=== PATIENT | male | born 1970 | race Caucasian/White ===

== ENCOUNTER 2025-06-03 11:18 | Inpatient (IN) | payer OTHER ==
[~2025-06-03] VITALS: Ht 175.3 cm; Wt 72.8 kg
[2025-06-03] MEDS ORDERED: ONDANSETRON 4 MG/2 ML VIAL ONE (12:16)
[2025-06-03] MEDS ORDERED: HYDROMORPHONE 1 MG/1 ML DISP.SYRIN ONE (12:16)
[2025-06-03 12:17] LABS: PLATELET COUNT (AUTO) 270 K/uL (152-348); RED BLOOD CELL COUNT(AUTO) 4.78 MIL/uL (4.06-5.63); RED CELL DISTRIBUTION WIDTH 14.0 % (12.1-16.2); WHITE BLOOD COUNT (AUTO) 7.7 K/uL (3.6-10.2)
[2025-06-03 12:22] LABS: CREATININE 1.1 mg/dL (0.6-1.3); SODIUM SERUM 141.0 mmol/L (136-145); UREA NITROGEN, BLOOD 18.0 mg/dL (7-18)
[2025-06-03 12:27] LABS: ASPARTATE AMINOTRANSFERASE 26.0 U/L (15-37); TOTAL PROTEIN, SERUM 6.9 g/dL (6.4-8.2)
[2025-06-03] MEDS: ONDANSETRON 4 MG/2 ML VIAL IV ONE (12:46)
[2025-06-03] MEDS: HYDROMORPHONE 1 MG/1 ML DISP.SYRIN IV ONE (12:48)
[2025-06-03] MEDS ORDERED: KETOROLAC TROMETHAMINE 30 MG INJ ONE (12:59)
[2025-06-03] MEDS: KETOROLAC TROMETHAMINE 30 MG INJ IM ONE (13:01)
[2025-06-03] MEDS: KETOROLAC TROMETHAMINE 30 MG INJ IVP ONE (13:07)
[2025-06-03] MEDS ORDERED: LORAZEPAM 1 MG TABLET ONE (16:16)
[2025-06-03] MEDS: LORAZEPAM 0.5 MG TABLET PO ONE (16:20)
[2025-06-03] MEDS ORDERED: HYDR-3980 PO (17:51)
[2025-06-03 22:00] VITALS: BP 133/90
[2025-06-03] MEDS ORDERED: MORPHINE SULFATE 4 MG/1 ML DISP.SYRIN IV PRN (22:30)
[2025-06-03] MEDS ORDERED: MAGNESIUM HYDROXIDE 30 ML LIQUID UDC PO PRN (22:30)
[2025-06-03] MEDS ORDERED: ONDANSETRON 4 MG/2 ML VIAL IV PRN (22:30)
[2025-06-03] MEDS: IV NS 1000 ML 1,000 ML IV SCH (22:30)
[2025-06-03] MEDS ORDERED: ACETAMINOPHEN 325 MG TABLET PO PRN (22:30)
[2025-06-03 23:30] VITALS: BP 130/86; TEMP 97.6; O2SAT 97
[2025-06-04] MEDS: IBUPROFEN 600 MG TABLET PO SCH (00:26)
[2025-06-04 04:00] VITALS: BP 133/72; TEMP 98.2; O2SAT 97
[2025-06-04] MEDS: PANTOPRAZOLE SODIUM 40 MG TABLET.DR PO SCH (06:21)
[2025-06-04 07:18] LABS: PLATELET COUNT (AUTO) 272 K/uL (152-348); RED BLOOD CELL COUNT(AUTO) 4.84 MIL/uL (4.06-5.63); RED CELL DISTRIBUTION WIDTH 13.7 % (12.1-16.2); WHITE BLOOD COUNT (AUTO) 6.5 K/uL (3.6-10.2)
[2025-06-04 07:29] LABS: CREATININE 1.0 mg/dL (0.6-1.3); SODIUM SERUM 141.0 mmol/L (136-145); UREA NITROGEN, BLOOD 17.0 mg/dL (7-18)
[2025-06-04 07:50] LABS: ERYTHROCYTE SEDIMENTATION RATE 55 MM/HR (0-15)
[2025-06-04] MEDS: HYDROCODONE/APAP 5-325MG TABLET PO PRN (08:39)
[2025-06-04] MEDS ORDERED: [UNRECOGNIZED DRUG - CODE] PO (10:28)
[2025-06-04] MEDS ORDERED: FAMO40TA7 PO (10:29)
[2025-06-04] MEDS ORDERED: DULO30CA52 PO (10:29)
[2025-06-04] MEDS ORDERED: PYRI-6 PO (10:29)
[2025-06-04 11:18] VITALS: BP 110/64; TEMP 97.6; O2SAT 98
[2025-06-04 15:25] VITALS: BP 110/58; TEMP 98.4; O2SAT 97
[2025-06-04 15:54] LABS: *BILIRUBIN,URIN NEGATIVE (NEGATIVE); *BLOOD, URINE NEGATIVE (NEGATIVE); *CLARITY,URINE CLEAR (CLEAR); *COLOR,URINE YELLOW (YELLOW); *KETONES,URINE NEGATIVE (NEGATIVE); *PROTEIN,URINE NEGATIVE (NEGATIVE); *UROBILINOGEN,URINE 0.2 E.U./dl (NORMAL); LEUKOCYTE ESTERASE ,URINE NEGATIVE (NEGATIVE); NITRITE, URINE NEGATIVE (NEGATIVE); UGLUCOSE NEGATIVE (NEGATIVE)
[2025-06-04 20:00] VITALS: BP 112/73; TEMP 98.8; O2SAT 99
[2025-06-05] MEDS: TRAZODONE 100 MG TABLET PO SCH (00:08)
[2025-06-05 05:00] VITALS: BP 100/59; TEMP 97.9; O2SAT 99
[2025-06-05] MEDS ORDERED: HYDR-3972 PO (11:05)
[2025-06-05 11:13] VITALS: BP 115/62; TEMP 98.1; O2SAT 98
== END 2025-06-05 13:00 | disposition home or self-care (01) | DRG 351 ==
LOC: ER 11:18 → MEDSURG3 22:31
DX: S89.92XA Unspecified injury of left lower leg, initial encounter (principal); E44.0 Moderate protein-calorie malnutrition; E88.09 Other disorders of plasma-protein metabolism, not elsewhere classified; M00.9 Pyogenic arthritis, unspecified; X58.XXXA Exposure to other specified factors, initial encounter; Y92.009 Unspecified place in unspecified non-institutional (private) residence as the place of occurrence of the external cause; M23.602 Other spontaneous disruption of unspecified ligament of left knee; M06.9 Rheumatoid arthritis, unspecified; M79.7 Fibromyalgia; K21.9 Gastro-esophageal reflux disease without esophagitis; E78.1 Pure hyperglyceridemia; Z88.6 Allergy status to analgesic agent; Z88.0 Allergy status to penicillin; M25.462 Effusion, left knee; R53.81 Other malaise
CPT/HCPCS: 36415; 73560; 73700; 83735; 84100; 85025; 85651; 86140; A4606; A4663; G0378; J1171; J1885; J2405; J7040